=== PATIENT | male | born 1965 ===

== ENCOUNTER 2016-11-09 06:21 | Day surgery (SDC) | payer OTHER ==
[2016-11-09] MEDS ORDERED: Lactated Ringer's 1,000 ML IV ONE (07:15)
[2016-11-09 07:21] VITALS: BMI 25.0
[2016-11-09] MEDS ORDERED: Midazolam 2 MG/2 ML VIAL ONE (07:37)
[2016-11-09] MEDS ORDERED: Propofol 10 mg/ml Inj (20 ML) ONE ×2 (07:37→09:44)
[2016-11-09] MEDS ORDERED: Bacitracin Ointment 30 GM TUBE ONE (07:57)
[2016-11-09] MEDS ORDERED: Iohexol 300 10 ML ONE (07:57)
[2016-11-09] MEDS ORDERED: Lidocaine 1% Inj (20ml) ONE ×3 (07:57→10:18)
[2016-11-09] MEDS ORDERED: MethylPREDNISolone Depo 40 mg/ml Inj ONE (08:49)
[2016-11-09] MEDS ORDERED: EPINEPHrine 1 mg/ml (1:1000) Inj ONE (09:17)
[2016-11-09] MEDS: Bupivacaine HCl 0.25% PF (30 ml) Inj ONE ×2 (09:40→10:09)
[2016-11-09] MEDS ORDERED: Bupivacaine HCl 0.25% PF (10 ml) Inj ONE (10:18)
[2016-11-09] MEDS ORDERED: Liquid Adhesive TOP ONE (11:42)
[2016-11-09] MEDS ORDERED: DiphenhydrAMINE 50 mg/ml Inj IVP PRN (12:22)
[2016-11-09] MEDS ORDERED: Oxycodone/Acetaminophen 5/325 mg Tab PO PRN (12:26)
[2016-11-09] MEDS ORDERED: Lactated Ringer's 1,000 ML IV SCH (12:30)
[2016-11-09] MEDS: HYDROmorphone 0.5 mg/0.5 ml ISec IVP PRN ×4 (12:35→13:25)
[2016-11-09] MEDS ORDERED: Oxycodone/Acetaminophen 5/325 mg Tab PO ONE (14:45)
[2016-11-09 16:28] VITALS: BP 130/76; PULSE 86; RESP 48; TEMP 98.1; O2SAT 97
== END 2016-11-09 16:30 | disposition home or self-care (01) ==
LOC: H.OPSURG 06:21
PROVIDERS: ATTEND Anesthesiology
DX: M96.1 Postlaminectomy syndrome, not elsewhere classified (principal)